=== PATIENT | female | born 1955 | race Caucasian/White ===

== ENCOUNTER 2020-08-05 10:34 | Day surgery (SDC) | payer OTHER ==
[2020-08-03 16:18] VITALS: BMI 24.5
[2020-08-05 10:51] VITALS: PULSE 76
[2020-08-05] MEDS ORDERED: PROPOFOL 20 ML ONE ×3 (11:00→12:03)
[2020-08-05] MEDS ORDERED: LIDOCAINE HCL/PF 2% SDV 5ML VIAL ONE (11:00)
[2020-08-05 13:14] VITALS: TEMP 97.8
[2020-08-05 13:15] VITALS: BP 121/75
== END 2020-08-05 13:00 | disposition home or self-care (01) ==
LOC: FASU 10:34
PROVIDERS: ATTEND Internal Medicine Gastroenterology
PROC: 0DB68ZX Excision of Stomach, Via Natural or Artificial Opening Endoscopic, Diagnostic (ICD-10-PCS; 2020-08-05)
PROC: 0DB48ZX Excision of Esophagogastric Junction, Via Natural or Artificial Opening Endoscopic, Diagnostic (ICD-10-PCS; 2020-08-05)
PROC: 0DB98ZX Excision of Duodenum, Via Natural or Artificial Opening Endoscopic, Diagnostic (ICD-10-PCS; principal; 2020-08-05 12:01)
DX: K29.70 Gastritis, unspecified, without bleeding (principal)
CPT/HCPCS: 88305-TC; 88342-TC